=== PATIENT | male | born 1945 | race Caucasian/White ===

== ENCOUNTER 2020-08-12 19:14 | Emergency (ER) | payer MEDICARE, OTHER ==
[~2020-08-12] VITALS: Ht 172.7 cm; Wt 76.8 kg
[~2020-08-12 19:14] MED LIST: NORVASC 10MG10 MG PO; PRIL40 PO; SYNTHROID0.05 MG/TA PO
[2020-08-12] MEDS ORDERED: ANTIVERT 25MG25 MG PO (19:55)
[2020-08-12] MEDS ORDERED: ZOFRAN ODT4 MG PO (19:55)
[2020-08-12 20:03] LABS: HEMATOCRIT 50.2 % (42.0-52.0); HEMOGLOBIN 17.5 g/dl (13.5-18.0); MEAN CELL VOLUME 89 fl (80.0-100.0); MEAN CORPUSCULAR HEMOGLOBIN 31 pg (27.0-31.0); MEAN CORPUSCULAR HGB CONC 35 g/dl (33.0-37.0); MEAN PLATELET VOLUME 10.9 fl (7.4-10.4); PLATELET COUNT 216 K/mm3 (130-400); RED BLOOD COUNT 5.67 M/mm3 (4.20-5.60); REDCELL DISTRIBUTION WIDTH-CV 12.5 % (11.5-14.5)
[2020-08-12 20:14] LABS: ALANINE AMINOTRANSFERASE 26 U/L (4-49); ALBUMIN 4.8 gm/dL (3.5-5.0); ALKALINE PHOSPHATASE 83 U/L (50-136); ANION GAP 12 mmol/L (7-16); AST,SGOT 31 U/L (15-37); BILIRUBIN,TOTAL 1.6 mg/dL (0.0-1.0); BLOOD UREA NITROGEN 20 mg/dL (9-20); CALCIUM 9.9 mg/dL (8.4-10.2); CARBON DIOXIDE 23 mmol/L (22-30); CHLORIDE 103 mmol/L (98-107); CREATININE, serum 1.15 (0.66-1.25); GLUCOSE 133 mg/dL (74-106); SODIUM 137 mmol/L (137-145); TOTAL PROTEIN 8.5 gm/dL (6.4-8.2)
[2020-08-12 20:30] LABS: TROPONIN-I < 0.012 ng/mL (0.000-0.035)
[2020-08-12 20:41] LABS: BAND 2 % (0-10); LYMPHOCYTE 2 % (20.0-51.0); NEUTROPHILS 93 % (42.0-75.2); PLATELET ESTIMATE NORMAL (NORMAL)
[2020-08-12 22:11] VITALS: BP 142/97; PULSE 93; TEMP 97.6
== END 2020-08-12 22:14 | disposition home or self-care (01) ==
LOC: COL.ER 19:14
PROVIDERS: Emergency Medicine
DX: R42 Dizziness and giddiness (principal); I10 Essential (primary) hypertension; E03.9 Hypothyroidism, unspecified; Z20.822 Contact with and (suspected) exposure to COVID-19; Z88.0 Allergy status to penicillin; Z79.890 Hormone replacement therapy
CPT/HCPCS: J2405; J3360; J7030

== ENCOUNTER 2020-11-07 14:30 | Outpatient (RCR) | payer MEDICARE, OTHER ==
[~2020-11-07 14:30] MED LIST changes: +ANTIVERT 25MG25 MG PO; +ZOFRAN ODT4 MG PO
== END 2020-11-11 | disposition still patient (30) ==
LOC: WSPT
DX: R42 Dizziness and giddiness (principal)

== ENCOUNTER 2020-11-15 15:00 | Outpatient (RCR) | payer MEDICARE, OTHER | END 2020-12-27 11:04 | disposition still patient (30) | LOC: WSPT 15:00 | DX: R42 Dizziness and giddiness (principal); M25.511 Pain in right shoulder ==